=== PATIENT | female | born 1950 | race African-American/Black ===

== ENCOUNTER 2023-06-17 16:08 | Emergency (ER) | payer OTHER ==
[~2023-06-17] VITALS: Ht 157.5 cm; Wt 81.0 kg
[2023-06-17 16:15] VITALS: BP 140/80; PULSE 60; RESP 18; TEMP 98.5; O2SAT 100
== END 2023-06-17 18:23 | disposition left against medical advice (07) ==
LOC: ER 16:08
DX: Z53.21 Procedure and treatment not carried out due to patient leaving prior to being seen by health care provider (principal)
CPT/HCPCS: 99281